=== PATIENT | female | born 1950 | race Caucasian/White ===

== ENCOUNTER 2017-09-08 19:59 | Inpatient (IN) | payer MEDICARE, MEDICAID ==
[~2017-09-08] VITALS: Ht 152.4 cm; Wt 85.4 kg
[2017-09-08] MEDS: IV D5 1/2 NS 1000 ML 1,000 ML IV PRN
[2017-09-08] MEDS ORDERED: PANTOPRAZOLE SODIUM IV 80 MG in IV DEXTROSE 5% 100 ML IV ONE (20:15)
[2017-09-08] MEDS ORDERED: IV NORMAL SALINE 1000 ML BAG IV ONE ×2 (20:15→22:00)
[2017-09-08] MEDS ORDERED: PANTOPRAZOLE SODIUM 40 MG VIAL ONE (20:41)
[2017-09-08 21:07] LABS: BASOPHILS # (AUTO) 0.1 K/uL (0.0-8.0); BASOPHILS % (AUTO) 0.5 % (0.0-2.0); EOSINOPHILS # (AUTO) 0.2 K/uL (0.0-0.7); EOSINOPHILS % (AUTO) 1.7 % (0.0-7.0); HEMATOCRIT 34.5 % (31.2-41.9); HEMOGLOBIN 11.5 g/dL (10.9-14.3); LYMPHOCYTES # (AUTO) 3.3 K/uL (20.0-40.0); LYMPHOCYTES % (AUTO) 30.4 % (20.5-51.5); MEAN CORPUSCULAR HEMOGLOBIN 27.8 uug (24.7-32.8); MEAN CORPUSCULAR HGB CONC 34 g/dL (32.3-35.6); MEAN CORPUSCULAR VOLUME 83.1 fL (75.5-95.3); MONOCYTES # (AUTO) 0.3 K/uL (2.0-10.0); MONOCYTES % (AUTO) 2.9 % (0.0-11.0); NEUTROPHILS % (AUTO) 64.5 % (38.5-71.5); PLATELET COUNT (AUTO) 377 K/uL (179-408); RED BLOOD CELL COUNT(AUTO) 4.15 MIL/uL (3.63-4.92); WHITE BLOOD COUNT (AUTO) 10.8 K/uL (3.8-11.8)
[2017-09-08 21:23] LABS: BILIRUBIN,DIRECT 0.1 mg/dL (0.0-0.2); BILIRUBIN,TOTAL 0.2 mg/dL (0.2-1.0); TOTAL PROTEIN, SERUM 7.2 g/dL (6.4-8.2)
--- NOTE | 2017-09-08 21:30 | NUR ---
PATIENT ATTEMPTED TO GET OUT OF BED BUT FELT WEAK AND DIZZY. PLACED BACK INTO [facility]. DR PIZARRO MADE AWARE
[2017-09-08] MEDS ORDERED: ASPI81TA31 PO (21:35)
[2017-09-08] MEDS ORDERED: METO-357 PO (21:35)
[2017-09-08] MEDS ORDERED: ATOR40TA PO (21:35)
[2017-09-08] MEDS ORDERED: MELO-105 PO (21:35)
[2017-09-08] MEDS ORDERED: LOSA1TAB39 PO (21:35)
[2017-09-08 21:58] LABS: CREATININE 0.8 mg/dL (0.6-1.3); POTASSIUM 3.5 mmol/L (3.5-5.1)
[2017-09-08] MEDS ORDERED: HYDROCODONE/APAP 5-325MG TABLET PO PRN (22:15)
[2017-09-08] MEDS ORDERED: MAGNESIUM HYDROXIDE 30 ML LIQUID UDC PO PRN (22:15)
[2017-09-08] MEDS ORDERED: ONDANSETRON 4 MG/2 ML VIAL IV PRN (22:15)
[2017-09-08] MEDS ORDERED: ACETAMINOPHEN 325 MG TABLET PO PRN (22:15)
[2017-09-08] MEDS ORDERED: Z GUARD REMEDY PASTE 57 GM TUBE TOP PRN (22:15)
--- NOTE | 2017-09-08 22:46 | NUR ---
Transfered to Tele via [employer]
--- NOTE | 2017-09-08 22:55 | NUR ---
Received patient to Tele floor in stable condition. Family at bedside. No skin issues noted. IV #20 to RAC flushed well. Assisted to bathroom once and pt had a small bloody bowel movement. Orientated patient to the unit and call light system. Pt speaks Mohawk and Welsh. Son is translating for her at this time. Family handed me a bag of pills belonging to the patient. Noted that 2 bottles had 's name on it (Aspirin 81mg and Meloxicam 7.5mg). Family unable to state whether or not patient had taken her 's pills on accident. Bed alarm on, be locked and in low position with call light within reach.
[2017-09-08 23:00] VITALS: BP 137/83
--- NOTE | 2017-09-09 01:20 | NUR ---
Relayed to on-call GROUND W[employer] CONTRACTOR Nuris pt lactic acid was 2.2 and 2.4 respectively. No new orders.
--- NOTE | 2017-09-09 02:06 | NUR ---
IV to LAC infiltrated after starting IV fluid. Started a new IV #22 at the right hand. Removed old IV and provided care. Assisted pt to BR. Noted with small dark bloody stool still.
[2017-09-09 04:00] VITALS: BP 132/73
--- NOTE | 2017-09-09 06:21 | NUR ---
Pt slept well through the night. No s/s distress noted. Assisted to bathroom as needed. Family will visit in the morning. Tele is normal sinus rhythm.
[2017-09-09 06:30] LABS: BASOPHILS % (AUTO) 0.3 % (0.0-2.0); EOSINOPHILS # (AUTO) 0.1 K/uL (0.0-0.7); HEMATOCRIT 30.1 % (31.2-41.9); HEMOGLOBIN 10.1 g/dL (10.9-14.3); LYMPHOCYTES % (AUTO) 28.1 % (20.5-51.5); MEAN CORPUSCULAR HEMOGLOBIN 28.1 uug (24.7-32.8); MEAN CORPUSCULAR HGB CONC 34 g/dL (32.3-35.6); MEAN CORPUSCULAR VOLUME 83.4 fL (75.5-95.3); MONOCYTES # (AUTO) 0.5 K/uL (2.0-10.0); MONOCYTES % (AUTO) 4.4 % (0.0-11.0); NEUTROPHILS # (AUTO) 7.1 K/uL (1.8-8.9); NEUTROPHILS % (AUTO) 66.2 % (38.5-71.5); PLATELET COUNT (AUTO) 334 K/uL (179-408); RED BLOOD CELL COUNT(AUTO) 3.61 MIL/uL (3.63-4.92); WHITE BLOOD COUNT (AUTO) 10.7 K/uL (3.8-11.8)
[2017-09-09 06:39] LABS: CREATININE 0.7 mg/dL (0.6-1.3); MAGNESIUM 2.1 mg/dL (1.8-2.4); PHOSPHOROUS 3.4 mg/dL (2.5-4.9); POTASSIUM 3.3 mmol/L (3.5-5.1)
--- NOTE | 2017-09-09 07:45 | NUR ---
RECEIVED PATIENT IN BED AWAKE ALERT AND ORIENTED DENIES PAIN OR DISCOMFORTS AT THIS TIME.PATIENT IS NOTHING BY MOUTH ORDERED AND SHE IS REEDUCATED AND SHE EXPRESSED UNDERSTANDING.REMAIN ON IVF ORDERED WITH NO S/S OF INFILTERATION ON SITE NO BOWEL MOVEMENTS AT THIS TIME WILL OBSERVE.
[2017-09-09] MEDS: PANTOPRAZOLE SODIUM 40 MG VIAL IV SCH ×2 (08:40→21:22)
[2017-09-09 11:05] VITALS: BP 118/71
--- NOTE | 2017-09-09 12:06 | NUR ---
[facility] SPEC DR MCLEOD CLINICAL INFORMATICS SPEC WITH ORDER TO START PATIENT ON CLEAR LIQUIDS DIET STATED THAT SHE WILL SCHEDULE PATIENT FOR COLONOSCOPY TOMORROW SO THEN SHE WILL BE NPO AFTER MIDNITE AWAITING FOR THE ORDERS.
[2017-09-09] MEDS ORDERED: MAGNESIUM CITRATE 296 ML BOTTLE PO ONE (12:45)
[2017-09-09] MEDS ORDERED: GOLYTELY 4000 ML BOTTLE PO ONE (12:45)
[2017-09-09] MEDS ORDERED: FLEET ENEMA 133 ML BOTTLE RC ONE (12:45)
[2017-09-09] MEDS ORDERED: MELO-107 PO (12:47)
[2017-09-09] MEDS ORDERED: METF500T6 PO (12:48)
[2017-09-09] MEDS ORDERED: ERGO500014 PO (12:49)
[2017-09-09] MEDS ORDERED: PANT40TA2 PO (12:50)
[2017-09-09] MEDS ORDERED: SERT50TA PO (12:50)
[2017-09-09] MEDS ORDERED: ALPR0.255 PO (12:51)
[2017-09-09] MEDS: IV D5 1/2 NS 1000 ML 1,000 ML IV PRN ×2 (13:21)
[2017-09-09 13:31] LABS: *BILIRUBIN,URIN NEGATIVE (NEGATIVE); *BLOOD, URINE 1+ (NEGATIVE); *CLARITY,URINE CLEAR (CLEAR); *COLOR,URINE YELLOW (YELLOW); *KETONES,URINE NEGATIVE (NEGATIVE); *PROTEIN,URINE NEGATIVE (NEGATIVE); *UROBILINOGEN,URINE 0.2 E.U./dl (NORMAL); LEUKOCYTE ESTERASE ,URINE NEGATIVE (NEGATIVE); NITRITE, URINE NEGATIVE (NEGATIVE); PH,URINE 6.5 (5.0-8.0); UGLUCOSE NEGATIVE (NEGATIVE)
[2017-09-09 13:35] LABS: BASOPHILS # (AUTO) 0.1 K/uL (0.0-8.0); BASOPHILS % (AUTO) 0.7 % (0.0-2.0); EOSINOPHILS # (AUTO) 0.1 K/uL (0.0-0.7); EOSINOPHILS % (AUTO) 1.2 % (0.0-7.0); HEMATOCRIT 30.3 % (31.2-41.9); HEMOGLOBIN 10.1 g/dL (10.9-14.3); LYMPHOCYTES # (AUTO) 2.9 K/uL (20.0-40.0); MEAN CORPUSCULAR HEMOGLOBIN 28.1 uug (24.7-32.8); MEAN CORPUSCULAR HGB CONC 33 g/dL (32.3-35.6); MEAN CORPUSCULAR VOLUME 84.1 fL (75.5-95.3); MONOCYTES # (AUTO) 0.4 K/uL (2.0-10.0); MONOCYTES % (AUTO) 4.3 % (0.0-11.0); NEUTROPHILS # (AUTO) 5.9 K/uL (1.8-8.9); NEUTROPHILS % (AUTO) 62.8 % (38.5-71.5); PLATELET COUNT (AUTO) 266 K/uL (179-408); WHITE BLOOD COUNT (AUTO) 9.5 K/uL (3.8-11.8)
[2017-09-09 13:41] LABS: BACTERIA,URINE FEW /HPF (NONE SEEN); RBC,URINE 0-3 /HPF (0-3); SQUAMOUS EPITHELIAL CELL,UR FEW /HPF (NONE SEEN); WBC,URINE 0-3 /HPF (0-3)
[2017-09-09] MEDS ORDERED: POTASSIUM CHLORIDE 20 MEQ TAB.PRT.SR PO ONE (14:15)
--- NOTE | 2017-09-09 15:00 | NUR ---
PATIENT PICKED UP BE BED TO RADIOLOGY FOR THE NUCLEAR SCAN ORDERED BY WHEEL CHAIR IN SATISFACTORY CONDITION IS AT THE BEDSIDE.
[2017-09-09 15:23] VITALS: BP 107/65
--- NOTE | 2017-09-09 17:30 | NUR ---
PATIENT RETURNED FROM THE NUCLEAR MEDICINE BUT THE TECH STATED THAT SHE WILL BE BACK IN 15-20 MINUTES TO PICK PATIENT UP AND STATED TO NOT CONNECT PATIENT TO ANY LINES AT THIS TIME.
--- NOTE | 2017-09-09 17:57 | NUR ---
CALLED NUCLEAR MEDICINE TO INQUIRE HOW LONG BEFORE SHE WILL COMMUNITY HEALTH COUNSELOR PATIENT FOR THE COMPLETION OF THE TEST BECAUSE PATIENT IS FOR COLONOSCOPY TOMORROW AND NEEDS TO START TAKING LAXATIVES ORDERED AND SHE STATED THAT SHE WILL BE HERE IN 5-10 MINUTES PATIENT NOTIFIED.CLEAR LIQUIDS DINNER SERVED AT THIS TIME HER IS AT THE BEDSIDE.
--- NOTE | 2017-09-09 18:26 | NUR ---
PATIENT RECONNECTED BACK ON HER IVF AND PREPS STARTED ORDERED AND WILL OBSERVE.
[2017-09-09 20:00] VITALS: BP 141/78
--- NOTE | 2017-09-09 20:00 | NUR ---
RECEIVED PATIENT AWAKE IN BED, SHE DENIES PAIN OR ANY DISCOMFORT. PATIENT ON GOLYTELY PREP FOR COLONOSCOPY. STOOL IS BLOODY,V/S STABLE NO C/O OF DIZZINESS. SAFETY MEASURES IN PLACE, CALL LIGHT WITHIN PATIENT'S REACH. WILL CONTINUE TO MONITOR PATIENT
[2017-09-09 22:35] LABS: BASOPHILS % (AUTO) 0.3 % (0.0-2.0); EOSINOPHILS # (AUTO) 0.1 K/uL (0.0-0.7); EOSINOPHILS % (AUTO) 0.9 % (0.0-7.0); HEMATOCRIT 30.8 % (31.2-41.9); HEMOGLOBIN 10.4 g/dL (10.9-14.3); LYMPHOCYTES # (AUTO) 2.2 K/uL (20.0-40.0); LYMPHOCYTES % (AUTO) 20.6 % (20.5-51.5); MEAN CORPUSCULAR HEMOGLOBIN 28.1 uug (24.7-32.8); MEAN CORPUSCULAR HGB CONC 34 g/dL (32.3-35.6); MEAN CORPUSCULAR VOLUME 82.8 fL (75.5-95.3); MONOCYTES # (AUTO) 0.4 K/uL (2.0-10.0); MONOCYTES % (AUTO) 3.7 % (0.0-11.0); NEUTROPHILS # (AUTO) 7.9 K/uL (1.8-8.9); NEUTROPHILS % (AUTO) 74.5 % (38.5-71.5); PLATELET COUNT (AUTO) 339 K/uL (179-408); RED BLOOD CELL COUNT(AUTO) 3.72 MIL/uL (3.63-4.92); WHITE BLOOD COUNT (AUTO) 10.7 K/uL (3.8-11.8)
[2017-09-09 22:43] LABS: IRON, SERUM 43 ug/dL (50-175)
[2017-09-10] VITALS: BP 132/62
[2017-09-10 01:15] LABS: BASOPHILS % (AUTO) 0.3 % (0.0-2.0); EOSINOPHILS # (AUTO) 0.1 K/uL (0.0-0.7); EOSINOPHILS % (AUTO) 0.9 % (0.0-7.0); HEMATOCRIT 28.8 % (31.2-41.9); HEMOGLOBIN 9.7 g/dL (10.9-14.3); LYMPHOCYTES # (AUTO) 2.9 K/uL (20.0-40.0); LYMPHOCYTES % (AUTO) 27.7 % (20.5-51.5); MEAN CORPUSCULAR HGB CONC 34 g/dL (32.3-35.6); MEAN CORPUSCULAR VOLUME 83.4 fL (75.5-95.3); MONOCYTES # (AUTO) 0.4 K/uL (2.0-10.0); MONOCYTES % (AUTO) 3.9 % (0.0-11.0); NEUTROPHILS # (AUTO) 7.1 K/uL (1.8-8.9); NEUTROPHILS % (AUTO) 67.2 % (38.5-71.5); PLATELET COUNT (AUTO) 301 K/uL (179-408); RED BLOOD CELL COUNT(AUTO) 3.45 MIL/uL (3.63-4.92); WHITE BLOOD COUNT (AUTO) 10.6 K/uL (3.8-11.8)
[2017-09-10 04:00] VITALS: BP 110/59
[2017-09-10] MEDS: IV D5 1/2 NS 1000 ML 1,000 ML IV PRN ×2 (05:46→16:59)
--- NOTE | 2017-09-10 06:30 | NUR ---
PATIENT SLEPT WELL THROUGH THE NIGHT, PAIN MEDS WERE GIVEN X1 ON THIS SHIFT. NO C/O PAIN OR RESP DISTRESS. FLEET ENEMA ADMINISTERED ORDERED STOOL IS CLEAR YELLOWISH IN COLOR WITH NO BLOOD. NO C/O DIZZINESS, V/S STABLE. SAFETY AND COMFORT MEASURES IN PLACE, ALL NEEDS MET
[2017-09-10 06:42] LABS: BASOPHILS % (AUTO) 0.3 % (0.0-2.0); EOSINOPHILS # (AUTO) 0.2 K/uL (0.0-0.7); EOSINOPHILS % (AUTO) 1.7 % (0.0-7.0); HEMATOCRIT 29.3 % (31.2-41.9); HEMOGLOBIN 9.8 g/dL (10.9-14.3); LYMPHOCYTES # (AUTO) 2.9 K/uL (20.0-40.0); LYMPHOCYTES % (AUTO) 32.7 % (20.5-51.5); MEAN CORPUSCULAR HEMOGLOBIN 27.8 uug (24.7-32.8); MEAN CORPUSCULAR HGB CONC 33 g/dL (32.3-35.6); MEAN CORPUSCULAR VOLUME 83.4 fL (75.5-95.3); MONOCYTES # (AUTO) 0.4 K/uL (2.0-10.0); MONOCYTES % (AUTO) 4.8 % (0.0-11.0); NEUTROPHILS # (AUTO) 5.3 K/uL (1.8-8.9); NEUTROPHILS % (AUTO) 60.5 % (38.5-71.5); PLATELET COUNT (AUTO) 319 K/uL (179-408); RED BLOOD CELL COUNT(AUTO) 3.51 MIL/uL (3.63-4.92); WHITE BLOOD COUNT (AUTO) 8.7 K/uL (3.8-11.8)
--- NOTE | 2017-09-10 07:40 | NUR ---
PATIENT IS AWAKE ALERT AND ORIENTED WITH LANGUAGE BARRIER SHE IS FOR COLONOSCOPY TODAY AND PREPPED IS COMPLETED AND PER REPORT PATIENT IS CLEAR SHE IS NOTHING BY MOUTH ORDERED WITH IVF IN PROGRESS MADE COMFORTABLE AND WILL CONTINUE TO OBSERVE.
[2017-09-10 07:46] LABS: CREATININE 0.8 mg/dL (0.6-1.3); POTASSIUM 3.5 mmol/L (3.5-5.1)
[2017-09-10] MEDS: PANTOPRAZOLE SODIUM 40 MG VIAL IV SCH ×2 (08:14→20:59)
--- NOTE | 2017-09-10 10:51 | NUR ---
PATIENT SEEN AND EXAMINED BY HUONG GARCIA WITH NEW ORDERS AND NOTED
--- NOTE | 2017-09-10 11:10 | NUR ---
PATIENT PICKED UP BY BED TO GI LAB FOR SCHEDULED PROCEDURE IN SATISFACTORY CONDITION.
[2017-09-10 11:42] VITALS: BP 134/76
--- NOTE | 2017-09-10 13:40 | NUR ---
PATIENT RETURNED FROM THE GI LAB BY BED AWAKE ALERT AND ORIENTED DENIES PAIN OR DISCOMFORTS AT THIS TIME ON ROOM AIR WITH NO SHORTNESS OF BREATH AT THIS TIME.CLEAR LIQUIDS GIVEN AND TOLERATED WELL DENIES NAUSEA OR VOMITING AT THIS TIME WILL ADVANCE DIET FOR DINNER.
[2017-09-10] MEDS: CEFTRIAXONE 1 G in IV DEXTROSE 5% 50 ML IV SCH (13:41)
[2017-09-10 13:48] LABS: BASOPHILS % (AUTO) 0.4 % (0.0-2.0); EOSINOPHILS # (AUTO) 0.1 K/uL (0.0-0.7); EOSINOPHILS % (AUTO) 1.1 % (0.0-7.0); HEMATOCRIT 28.1 % (31.2-41.9); HEMOGLOBIN 9.4 g/dL (10.9-14.3); LYMPHOCYTES # (AUTO) 2.4 K/uL (20.0-40.0); LYMPHOCYTES % (AUTO) 26.7 % (20.5-51.5); MEAN CORPUSCULAR HGB CONC 34 g/dL (32.3-35.6); MEAN CORPUSCULAR VOLUME 83.6 fL (75.5-95.3); MONOCYTES # (AUTO) 0.4 K/uL (2.0-10.0); MONOCYTES % (AUTO) 4.6 % (0.0-11.0); NEUTROPHILS # (AUTO) 6.1 K/uL (1.8-8.9); NEUTROPHILS % (AUTO) 67.2 % (38.5-71.5); PLATELET COUNT (AUTO) 298 K/uL (179-408); RED BLOOD CELL COUNT(AUTO) 3.36 MIL/uL (3.63-4.92)
[2017-09-10 13:57] VITALS: BP 131/74
[2017-09-10] MEDS ORDERED: LIDOCAINE HCL 2% 20 ML VIAL MC ONE (15:27)
[2017-09-10] MEDS ORDERED: PROPOFOL 200 MG/20 ML BOTTLE IV ONE (15:27)
[2017-09-10] MEDS ORDERED: IV D5W-0.45% NS 1000 ML BAG IV ONE (15:27)
[2017-09-10 15:46] VITALS: BP 119/65
--- NOTE | 2017-09-10 18:00 | NUR ---
TOLERATE DINNER ORDERED WITH NO NAUSEA OR VOMITING AT THIS TIME
--- NOTE | 2017-09-10 18:27 | NUR ---
RIGHT FOREARM SALINE LOCK IS LEAKING SO REMOVED AND IVF CONTINUED ON THE OTHER ONE ON HER RIGHT HAND FLUSHED AND INTACT.
[2017-09-10 19:07] LABS: BASOPHILS # (AUTO) 0.1 K/uL (0.0-8.0); BASOPHILS % (AUTO) 0.7 % (0.0-2.0); EOSINOPHILS # (AUTO) 0.1 K/uL (0.0-0.7); EOSINOPHILS % (AUTO) 1.3 % (0.0-7.0); HEMATOCRIT 29.5 % (31.2-41.9); HEMOGLOBIN 9.9 g/dL (10.9-14.3); LYMPHOCYTES # (AUTO) 3.2 K/uL (20.0-40.0); LYMPHOCYTES % (AUTO) 32.5 % (20.5-51.5); MEAN CORPUSCULAR HGB CONC 34 g/dL (32.3-35.6); MEAN CORPUSCULAR VOLUME 83.4 fL (75.5-95.3); MONOCYTES # (AUTO) 0.5 K/uL (2.0-10.0); MONOCYTES % (AUTO) 4.6 % (0.0-11.0); NEUTROPHILS # (AUTO) 6.1 K/uL (1.8-8.9); NEUTROPHILS % (AUTO) 60.9 % (38.5-71.5); PLATELET COUNT (AUTO) 341 K/uL (179-408); RED BLOOD CELL COUNT(AUTO) 3.54 MIL/uL (3.63-4.92)
--- NOTE | 2017-09-10 20:00 | NUR ---
RECEIVED PATIENT AWAKE IN BED, SHE'S AOX4 DENIES PAIN OR ANY DISTRESS. NO C/O DIZZINESS. FAMILY AT BED SIDE VISITING WITH PATIENT. SAFETY MEASURES IN PLACE
[2017-09-10 20:19] VITALS: BP 123/67
[2017-09-11 00:27] VITALS: BP 122/46
[2017-09-11 01:20] LABS: BASOPHILS # (AUTO) 0.1 K/uL (0.0-8.0); EOSINOPHILS # (AUTO) 0.1 K/uL (0.0-0.7); EOSINOPHILS % (AUTO) 1.3 % (0.0-7.0); HEMATOCRIT 27.3 % (31.2-41.9); HEMOGLOBIN 9.1 g/dL (10.9-14.3); LYMPHOCYTES # (AUTO) 3.5 K/uL (20.0-40.0); LYMPHOCYTES % (AUTO) 31.5 % (20.5-51.5); MEAN CORPUSCULAR HEMOGLOBIN 27.7 uug (24.7-32.8); MEAN CORPUSCULAR HGB CONC 33 g/dL (32.3-35.6); MONOCYTES # (AUTO) 0.5 K/uL (2.0-10.0); MONOCYTES % (AUTO) 4.3 % (0.0-11.0); NEUTROPHILS # (AUTO) 6.8 K/uL (1.8-8.9); NEUTROPHILS % (AUTO) 61.9 % (38.5-71.5); PLATELET COUNT (AUTO) 316 K/uL (179-408); RED BLOOD CELL COUNT(AUTO) 3.29 MIL/uL (3.63-4.92)
[2017-09-11 04:00] VITALS: BP 122/60
[2017-09-11] MEDS: IV D5 1/2 NS 1000 ML 1,000 ML IV PRN (05:12)
--- NOTE | 2017-09-11 06:32 | NUR ---
PATIENT SLEPT WELL THROUGH THE SHIFT SHE DENIED PAIN OR ANY DISTRESS. NO S/S OF GI BLEED, NO C/O OF DIZZINESS, V/S STABLE. NO SIGNIFICANT CHANGES IN STATUS. SAFETY MEASURES MAINTAINED AT ALL TIMES
[2017-09-11 07:33] LABS: THYROID STIMULATING HORMONE 2.423 mIU/mL (0.358-3.740)
[2017-09-11 08:34] LABS: BILIRUBIN,TOTAL 0.2 mg/dL (0.2-1.0); CREATININE 0.8 mg/dL (0.6-1.3); POTASSIUM 3.4 mmol/L (3.5-5.1); TOTAL PROTEIN, SERUM 6.5 g/dL (6.4-8.2)
[2017-09-11 08:39] LABS: BASOPHILS % (AUTO) 0.3 % (0.0-2.0); EOSINOPHILS # (AUTO) 0.1 K/uL (0.0-0.7); EOSINOPHILS % (AUTO) 1.5 % (0.0-7.0); HEMATOCRIT 28.2 % (31.2-41.9); HEMOGLOBIN 9.5 g/dL (10.9-14.3); LYMPHOCYTES # (AUTO) 2.2 K/uL (20.0-40.0); LYMPHOCYTES % (AUTO) 23.6 % (20.5-51.5); MEAN CORPUSCULAR HEMOGLOBIN 28.1 uug (24.7-32.8); MEAN CORPUSCULAR HGB CONC 34 g/dL (32.3-35.6); MEAN CORPUSCULAR VOLUME 83.7 fL (75.5-95.3); MONOCYTES # (AUTO) 0.4 K/uL (2.0-10.0); MONOCYTES % (AUTO) 4.2 % (0.0-11.0); NEUTROPHILS # (AUTO) 6.7 K/uL (1.8-8.9); NEUTROPHILS % (AUTO) 70.4 % (38.5-71.5); PLATELET COUNT (AUTO) 309 K/uL (179-408); RED BLOOD CELL COUNT(AUTO) 3.37 MIL/uL (3.63-4.92); WHITE BLOOD COUNT (AUTO) 9.5 K/uL (3.8-11.8)
[2017-09-11] MEDS: PANTOPRAZOLE SODIUM 40 MG VIAL IV SCH (08:45)
[2017-09-11] MEDS ORDERED: POTASSIUM CHLORIDE 20 MEQ TAB.PRT.SR PO ONE (09:45)
[2017-09-11] MEDS ORDERED: OMEGA-3 FATTY ACIDS/FISH OIL CAPSULE PO SCH (09:45)
--- NOTE | 2017-09-11 09:45 | NUR ---
SEEN BY HOSPITALIST WITH DC ORDER, STEEL FITTER AWARE
[2017-09-11] MEDS ORDERED: ALPRAZOLAM 0.25 MG TABLET PO PRN (10:00)
[2017-09-11] MEDS ORDERED: HYDROCORTISONE RECTAL SUPP 25 MG EACH RC SCH (10:00)
[2017-09-11] MEDS: CEFTRIAXONE 1 G in IV DEXTROSE 5% 50 ML IV SCH (11:00)
[2017-09-11 11:07] VITALS: BP 138/68
--- NOTE | 2017-09-11 11:21 | NUR ---
ROCEPHIN CHANGED TO PO
[2017-09-11] MEDS ORDERED: OMEG1CAP PO (13:00)
[2017-09-11] MEDS ORDERED: CEPH500C2 PO (13:00)
[2017-09-11] MEDS ORDERED: HYDR25SU13 RC (13:00)
[2017-09-11] MEDS ORDERED: PANT40TA2 PO (13:00)
[2017-09-11] MEDS ORDERED: ACET325T53 PO (13:00)
[2017-09-11] MEDS ORDERED: LACT1CAP59 PO (13:01)
[2017-09-11] MEDS ORDERED: CEPHALEXIN MONOHYDRATE 500 MG CAPSULE PO SCH (14:00)
--- NOTE | 2017-09-11 15:02 | NUR ---
DCD TO HOME WITH WITH RX AND FOLLOW-UP INSTRUCTION
[2017-09-11] MEDS ORDERED: ATORVASTATIN 40 MG TABLET PO SCH (21:00)
[2017-09-12] MEDS ORDERED: SERTRALINE HCL 50 MG TABLET PO SCH (09:00)
[2017-09-16] MEDS ORDERED: ERGOCALCIFEROL 50,000 UNIT CAPSULE PO SCH (09:00)
== END 2017-09-11 14:57 | disposition home or self-care (01) | DRG 393 ==
LOC: ER 20:02 → TELE 22:35 → MED 09-11 10:02
PROVIDERS: ADMIT Internal Medicine; ATTEND Internal Medicine
PROC: 0DB68ZX Excision of Stomach, Via Natural or Artificial Opening Endoscopic, Diagnostic (ICD-10-PCS; principal; 2017-09-10 12:29)
PROC: 0DJD8ZZ Inspection of Lower Intestinal Tract, Via Natural or Artificial Opening Endoscopic (ICD-10-PCS; 2017-09-10 12:29)
DX: K64.8 Other hemorrhoids (principal); N17.0 Acute kidney failure with tubular necrosis; E87.2 Acidosis; E44.0 Moderate protein-calorie malnutrition; E83.51 Hypocalcemia; R16.0 Hepatomegaly, not elsewhere classified; N39.0 Urinary tract infection, site not specified; K29.70 Gastritis, unspecified, without bleeding; K57.30 Diverticulosis of large intestine without perforation or abscess without bleeding; E66.9 Obesity, unspecified; E78.5 Hyperlipidemia, unspecified; Z79.82 Long term (current) use of aspirin; Z79.899 Other long term (current) drug therapy; Z68.36 Body mass index [BMI] 36.0-36.9, adult; E87.6 Hypokalemia; M51.37 Other intervertebral disc degeneration, lumbosacral region; I10 Essential (primary) hypertension; E86.1 Hypovolemia; R73.9 Hyperglycemia, unspecified; D64.9 Anemia, unspecified
CPT/HCPCS: 36415; 70030-TC; 71045; 78278; 83550; 83605; 83690; 83735; 84100; 84443; 85025; 85730; 86850; 86900; 86901; 87040; 87086; 88342; 93005; A4217; A4663; A9560; C9113; J0696; J2405; J3490; J7030; J7040; J7060